=== PATIENT | male | born 2000 | race Two or more races ===

== ENCOUNTER 2023-06-28 14:00 | Emergency (ER) | payer MEDICAID, OTHER ==
[~2023-06-28] VITALS: Ht 177.8 cm; Wt 100.0 kg
[2023-06-28 14:40] VITALS: BP 130/90; RESP 18; O2SAT 99
[2023-06-28 16:19] VITALS: PULSE 89
[2023-06-28] MEDS ORDERED: ZOFR4T PO (16:19)
[2023-06-28] MEDS ORDERED: MECL1TAB42 PO (16:19)
== END 2023-06-28 18:22 | disposition left against medical advice (07) ==
LOC: ER 14:00
DX: H81.11 Benign paroxysmal vertigo, right ear (principal); R11.2 Nausea with vomiting, unspecified
CPT/HCPCS: 82962; 93005